=== PATIENT | female | born 1945 | race Caucasian/White ===

== ENCOUNTER 2019-07-21 19:50 | Emergency (ER) | payer MEDICARE, OTHER ==
[~2019-07-21] VITALS: Ht 160 cm; Wt 81.6 kg
--- NOTE | 2019-07-21 20:13 | NUR ---
PT TRAIGED AND BACK TO LOBBY.
--- NOTE | 2019-07-21 20:17 | NUR ---
PT AMBULATED TO [facility] WITH STEADY GAIT.
--- NOTE | 2019-07-21 20:20 | NUR ---
dr. johnson at bedside.
[2019-07-21] MEDS ORDERED: KETOROLAC 30 MG/ML VIAL IM ONE (20:25)
--- NOTE | 2019-07-21 20:35 | NUR ---
PT TAKEN TO CT VIA [facility].
--- NOTE | 2019-07-21 20:47 | NUR ---
74 Y/O F PRESENTS TO ED C/O PAIN POST FALL AT HOME X 2 HOURS AGO. PT REPORTS SHE FELL DOWN FOUR STEPS. PT. PT PRESENTS WITH ABRASIONS ON BOTH KNEES, LEFT HAND, AND LEFT SIDE ON THE FACE. PT REPORTS LOC X 20 SECONDS. PERRLA INTACT. PT A&O X 4. RR EVEN AND UNLABORED. ALLERGIES: NONE MHX: HTN, HYPERLIPIDEMIA, DIABETES
[2019-07-21] MEDS ORDERED: BACITRACIN OINT 500 UNITS/GM PKT TP ONE ×2 (21:16→21:20)
--- NOTE | 2019-07-21 21:19 | NUR ---
Patient discharged with v/s stable. Written and verbal after care instructions given and explained. Patient verbalized understanding. Ambulatory with steady gait. All questions addressed prior to discharge. Advised to follow up with PMD.
== END 2019-07-21 21:19 | disposition home or self-care (01) ==
LOC: MED 19:50
DX: S00.83XA Contusion of other part of head, initial encounter (principal); S80.02XA Contusion of left knee, initial encounter; S80.01XA Contusion of right knee, initial encounter; S60.512A Abrasion of left hand, initial encounter; S60.511A Abrasion of right hand, initial encounter; E11.9 Type 2 diabetes mellitus without complications; I10 Essential (primary) hypertension; E78.00 Pure hypercholesterolemia, unspecified; Y30.XXXA Falling, jumping or pushed from a high place, undetermined intent, initial encounter; Y93.89 Activity, other specified; Y92.89 Other specified places as the place of occurrence of the external cause; Y99.8 Other external cause status
CPT/HCPCS: 70486; 90471; 90715; 96372; 99284; J1885